=== PATIENT | female | born 1965 | race Two or more races ===

== ENCOUNTER 2017-01-02 14:35 | Emergency (ER) | payer MEDICAID ==
[~2017-01-02] VITALS: Ht 154.9 cm; Wt 57.6 kg
[~2017-01-02 14:35] MED LIST: ACIPHEX20 MG ORAL; AMITRIPTYLINE25 MG ORAL; BACTRIM DS TAB1 EAC1 ORAL; BENTYL10 MG ORAL; CLOTRIMAZOLE AF30 GM TOPIC; IBUPROFEN400 MG ORAL; IMITREX50 MG ORAL; KEFLEX500 MG ORAL; MAALOX MAXIMUM355 M1 PO; MACROBID100 MG ORAL; NKM; NORCO 10-325 T1 EACH PO; NORCO 5-325 TA1 EACH ORAL; NORCO 5-325 TA1 EACH PO; PEPCID40 MG PO; PERCOCET 5-3251 EACH ORAL; PHENAZOPYRIDIN200 MG ORAL; PHENERGAN25 M1 PO; PRILOSEC10 M1 ORAL; PRILOSEC20 MG PO; RANITIDINE HCL150 M2 PO; TYLENOL EXTRA500 MG ORAL
--- NOTE | 2017-01-02 15:28 | Emergency Room Report ---
History of Present Illness General Chief Complaint: Back Pain-No Injury Source: Patient Present Illness HPI Patient is a 51-year-old female presented after increased right-sided flank pain and dysuria. The patient gradual onset of symptoms over the past one week. Patient had increased frequency of urination. She denied any vomiting or diarrhea. Patient had subjective fever. Patient denied any dizziness or lightheadedness. She reported having generalized body aches. Allergies: Coded Allergies: No Known Allergies (Unverified , 09/02/12) Patient History Past Medical History: see triage record Reviewed Nursing Documentation: PMH: Agreed, PSxH: Agreed Nursing Documentation-PM Past Medical History: No Stated History Hx Gastrointestinal Problems: Yes - GASTRITIS Hx Neurological Problems: Yes - MIGRAINES Review of Systems All Other Systems: negative except mentioned in HPI Physical Exam Vital Signs Date Time Temp Pulse Resp B/P Pulse Ox O2 Delivery O2 Flow Rate FiO2 01/02/17 14:44 99.5 100 18 121/86 97 Room Air General Appearance: well appearing, no apparent distress, alert, GCS 15 Head: normocephalic, atraumatic ENT: hearing grossly normal, normal voice Neck: full range of motion, supple Respiratory: no respiratory distress, speaking full sentences Cardiovascular #1: normal inspection, normal peripheral pulses, regular rate, rhythm Gastrointestinal: normal inspection, normal bowel sounds, non tender, soft Genitourinary: normal inspection Musculoskeletal: normal inspection, back normal, digits/nails normal, gait/ station normal, normal range of motion, no calf tenderness Neurologic: normal inspection, alert, oriented x3, 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 Differential diagnosis included but was not limited to herniated disc, cauda equina syndrome, abdominal aortic aneurysm, perforated ulcer, spinal epidural abscess, spinal stenosis, lumbar fracture, metastatic lesion, pyelonephritis. Patient's benign exam and does not appear to require any further imaging or laboratory testing at this time. Patient was given oral Bactrim as well as Tylenol for pain. The patient presented to urinary tract infection.The patient is advised to follow up with primary care doctor in 1-2 days. Patient is advised to return if any worsening condition or if any changes in status that are concerning. Last Vital Signs Date Time Temp Pulse Resp B/P Pulse Ox O2 Delivery O2 Flow Rate FiO2 01/02/17 14:44 99.5 100 18 121/86 97 Room Air Status: improved Disposition: HOME, SELF-CARE Condition: Stable Scripts Trimethoprim/Sulfamethoxazole 160/800* (BACTRIM DS TABLET*) 1 Each Tablet 1 TAB ORAL Q12H, #14 TAB 0 Refills Prov: Les Patel 01/02/17 Acetaminophen (Tylenol) 325 Mg Tablet 650 MG ORAL Q6H Y for Prn Pain/Headache/Temp > 101, #30 TAB 0 Refills Prov: Les Patel 01/02/17 Phenazopyridine Hcl* (PYRIDIUM*) 200 Mg Tablet 200 MG ORAL THREE TIMES A DAY, #6 TAB 0 Refills Prov: Les Patel 01/02/17 Referrals: NOT CHOSEN IPA/,REFERRING (PCP) Les Patel Jan 02, 2017 15:28
[2017-01-02] MEDS ORDERED: TYLENOL325 MG ORAL (15:30)
[2017-01-02] MEDS ORDERED: PHENAZOPYRIDIN200 MG ORAL (15:30)
[2017-01-02] MEDS ORDERED: Bactrim DS (160mg/800mg) tab ORAL ONE (15:30)
[2017-01-02] MEDS ORDERED: Acetaminophen 500mg (ES) tab ORAL ONE (15:30)
[2017-01-02 15:41] VITALS: BP 125/89
[2017-01-02 15:46] LABS: KETONES,URINE NEGATIVE (NEGATIVE); LEUKOCYTE ESTERASE ,URINE 3+ (NEGATIVE); NITRITE,URINE NEGATIVE (NEGATIVE); PH,URINE 8 (4.5-8.0); PROTEIN,URINE 2+ (NEGATIVE); UROBILINOGEN,URINE 4 MG/DL (0.0-1.0)
[2017-01-02] MEDS ORDERED: BACTRIM DS TAB1 EAC1 ORAL (15:46)
[2017-01-02 15:54] VITALS: BP 125/89
[2017-01-02 16:29] LABS: APPEARANCE,URINE VERY CLOUDY
[2017-01-02 16:32] LABS: BACTERIA,URINE MANY /HPF; RBC,URINE 20-30 /HPF (0 - 2); SQUAMOUS EPITHELIAL CELL,UR MANY /LPF (NONE/OCC); WBC,URINE TNTC /HPF (0 - 2)
[2017-01-06] MEDS ORDERED: NITROFURANTOIN100 M2 ORAL (09:27)
== END 2017-01-02 15:56 | disposition home or self-care (01) ==
LOC: EMR 15:00
DX: N39.0 Urinary tract infection, site not specified (principal)
CPT/HCPCS: 81003; 87086; 87181; 99284